=== PATIENT | male | born 1960 | race Caucasian/White ===

== ENCOUNTER 2018-01-24 22:10 | Emergency (ER) | payer MEDICAID ==
[~2018-01-24] VITALS: Ht 185.4 cm; Wt 58.4 kg
[2018-01-24] MEDS ORDERED: clonazePAM 0.5mg tablet PO SCH (23:15)
[2018-01-24 23:28] VITALS: BP 156/94
== END 2018-01-24 23:30 | disposition home or self-care (01) ==
LOC: ER 22:10
DX: F19.939 Other psychoactive substance use, unspecified with withdrawal, unspecified (principal); Z98.890 Other specified postprocedural states
CPT/HCPCS: 99283

== ENCOUNTER 2019-11-08 11:02 | Day surgery (SDC) | payer MEDICAID ==
[~2019-11-08] VITALS: Ht 180.3 cm; Wt 64.0 kg
[2019-11-08 11:19] VITALS: BP 124/52
[2019-11-08] MEDS ORDERED: normal saline 1000ml 1,000 ML IV PRN (11:55)
[2019-11-08] MEDS ORDERED: SERT25TA PO (11:56)
[2019-11-08] MEDS ORDERED: ALBU8.5H8 INH (11:56)
[2019-11-08] MEDS ORDERED: TRAZ-251 PO (11:56)
[2019-11-08] MEDS ORDERED: IBUP-1984 PO (11:56)
[2019-11-08] MEDS ORDERED: OMEP40CA13 PO (11:56)
[2019-11-08] MEDS ORDERED: DIAZ5TAB PO (11:56)
[2019-11-08] MEDS ORDERED: TIOT4MIS3 IH (11:56)
[2019-11-08] MEDS ORDERED: heparin sodium, porcine/PF 100unit/ml 5ML syringe ONE (13:27)
[2019-11-08] MEDS ORDERED: fentaNYL/PF 50MCG/1 ML 2ML syringe ONE ×2 (13:28→14:05)
[2019-11-08] MEDS ORDERED: midazolam 2 mg/2 ml injection ONE ×2 (13:28→14:05)
[2019-11-08] MEDS ORDERED: LIDOcaine 1%/PF 5ML 10 MG/ML VIAL ONE ×2 (13:28→14:08)
[2019-11-08 14:32] VITALS: BP 117/83
[2019-11-08 14:45] VITALS: BP 115/82
[2019-11-08 14:56] VITALS: BP 133/77
== END 2019-11-08 15:20 | disposition home or self-care (01) ==
LOC: SSTAY O 11:02
PROVIDERS: ATTEND Radiology Vascular & Interventional Radiology
DX: C34.11 Malignant neoplasm of upper lobe, right bronchus or lung (principal)
CPT/HCPCS: 36561; 76937; 77001; 99152; 99153; C1769; C1788; C1894; J1642; J2250; J3010

== ENCOUNTER 2021-05-07 05:39 | Inpatient (IN) | payer MEDICAID ==
[2021-04-30 17:10] LABS: BASOPHILS % (AUTO) 0.4 % (0-1); EOSINOPHILS % (AUTO) 0.5 % (0-6); LYMPHOCYTES # (AUTO) 2.2 X10'3 (1.1-4.8); LYMPHOCYTES % (AUTO) 29.8 % (21-51); MEAN CORPUSCULAR HEMOGLOBIN 30.2 PG (27.0-31.0); MEAN CORPUSCULAR HGB CONC 34.1 g/dL (33.0-36.5); MEAN CORPUSCULAR VOLUME 88.8 FL (78-98); MONOCYTES # (AUTO) 0.6 X10'3 (0-0.9); MONOCYTES % (AUTO) 8.1 % (2-12); NEUTROPHILS # (AUTO) 4.6 X10'3 (1.8-7.7); NEUTROPHILS % (AUTO) 61.2 % (42-75); PRE OP HEMATOCRIT 40.2 % (42.0-52.0); PRE OP HEMOGLOBIN 13.7 g/dL (14.0-17.9); PRE OP PLATELET COUNT 222 X10'3 (140-440); RED BLOOD COUNT 4.52 X10'6 (4.70-6.10); RED CELL DISTRIBUTION WIDTH 12.8 % (11.5-14.5)
[2021-04-30 17:15] LABS: CLARITY,URINE CLOUDY (Clear); COLOR,URINE YELLOW (Yellow); GLUCOSE, URINE NEGATIVE (Neg); KETONES,URINE NEGATIVE (Neg); LEUKOCYTE ESTERASE ,URINE LARGE (Neg); NITRITES, URINE POSITIVE (Neg); OCCULT BLOOD,URINE TRACE-INTACT (Neg); PROTEIN,URINE 30 mg/dl (Neg)
[2021-04-30 17:18] LABS: UA COLLECTION TYPE CLN CATCH MIDSTREAM
[2021-04-30 17:21] LABS: PRE OP INR 1.1 INR; PRE OP PROTIME 11.2 SECONDS (9.0-12.0)
[2021-04-30 17:22] LABS: BACTERIA,URINE 2+ /HPF (Neg); WBC CLUMPS,URINE MANY /HPF (NEGATIVE); WBC,URINE TNTC /HPF (0-4)
[2021-04-30 17:23] LABS: SQUAMOUS EPITHELIAL CELL,UR FEW /LPF (FEW)
[2021-04-30 17:35] LABS: ALBUMIN 3.9 G/DL (3.4-5.0); ALBUMIN/GLOBULIN RATIO 1.1 (1.1-1.5); ALKALINE PHOSPHATASE 95 IU/L (46-116); BLOOD UREA NITROGEN 7 MG/DL (7-18); BUN/CREATININE RATIO 10.1 (5.4-32.0); CHLORIDE 102 MMOL/L (99-107); CREATININE 0.69 MG/DL (0.60-1.10); PRE OP ALT 22 U/L (30-65); PRE OP ANION GAP 4 (8-16); PRE OP AST 16 U/L (10-37); PRE OP BILIRUB, TOTAL 0.4 MG/DL (0.0-1.0); PRE OP GLUCOSE 94 MG/DL (70-104); PRE OP POTASSIUM 4.3 MMOL/L (3.4-5.1); PRE OP SODIUM 142 MMOL/L (135-145); TOTAL CARBON DIOXIDE 35.8 MMOL/L (24-32); TOTAL PROTEIN 7.4 G/DL (6.4-8.2); eGFR > 90 ML/MIN
[~2021-05-07] VITALS: Ht 180.3 cm; Wt 53.1 kg
[2021-05-07] VITALS (24 sets, daily range): BP systolic 118–179; BP diastolic 61–95
[~2021-05-07 05:39] MED LIST: HYDR-3686 PO; MORP30TA60 PO; OLAN5TAB75 PO; OMEP40CA21 PO; OXYC30TA50 PO; SERT-434 PO; TRAZ-256 PO; ceFOXitin 2GM-NS 100mL ADDvant 100 ML IV ONE; famotidine 20mg tablet PO ONE; ringers solution, lacted 1,000 ML IV SCH
[2021-05-07] MEDS ORDERED: iohexol 300mg/ml 100ml inj. ONE (07:01)
[2021-05-07] MEDS ORDERED: diatr meglu/diatrizoate 30ml oral sol.-(3 dose) bottle ONE (07:29)
[2021-05-07] MEDS ORDERED: diazepam 5mg tablet ONE (08:19)
[2021-05-07] MEDS ORDERED: oxyCODONE/APAP 10/325mg tablet PO STA (12:49)
[2021-05-07] MEDS ORDERED: fentaNYL /PF 50mcg/ml 5ml ampule ONE (13:47)
[2021-05-07] MEDS ORDERED: sevoflurane 250ml liquid IH ONE (13:50)
[2021-05-07] MEDS ORDERED: BUPIVAcaine/PF 2.5mg/ml (0.25%) 10ml vial ONE (13:51)
[2021-05-07] MEDS ORDERED: BUPIVACAINE liposomal/PF 13.3 MG/ML vial IM ONE (13:51)
[2021-05-07] MEDS ORDERED: proCHLORperazine 10 MG/2 ml inj IV PRN (15:05)
[2021-05-07] MEDS ORDERED: ondansetron/PF 4mg/2ml inj IV PRN (15:05)
[2021-05-07] MEDS ORDERED: meperidine/PF 25mg/ml syringe IV PRN ×2 (15:05)
[2021-05-07] MEDS ORDERED: morphine 2 MG/ML inj. syringe IV PRN (15:05)
[2021-05-07] MEDS ORDERED: ringers solution, lacted 1,000 ML IV SCH (15:05)
[2021-05-07] MEDS ORDERED: LIDOcaine 2% (20mg/ml) 5ml vial ONE (16:25)
[2021-05-07] MEDS ORDERED: ondansetron/PF 4mg/2ml inj ONE (16:25)
[2021-05-07] MEDS ORDERED: ePHEDrine 50MG/ML INJ. ONE (16:25)
[2021-05-07] MEDS ORDERED: acetaminophen 1,000mg/100ml IV 100 ML IV ONE (16:25)
[2021-05-07] MEDS ORDERED: rocuronium 10mg/ml inj IV ONE (16:25)
[2021-05-07] MEDS ORDERED: dexamethasone sod phosphate 4mg/ml inj. ONE (16:25)
[2021-05-07] MEDS ORDERED: propofol inj 20 ML IV ONE (16:25)
[2021-05-07] MEDS ORDERED: sugammadex 200mg/2ml injection IV ONE (16:26)
--- NOTE | 2021-05-07 16:50 | NUR ---
Received from OR via , accompanied by Anesthesiologist DR SEBASTIAN and report given by Anesthesiolgist. PT PRESENTS WITH PIV LEFT WRIST, ABD DRESSING DRY AND INTACT, VSS. Addendum: 05/07/21 at 1707 by Ladi Bower RN, RN Amended: Links added.
[2021-05-07] MEDS: meperidine/PF 25mg/ml syringe IV PRN ×4 (17:09→17:55)
[2021-05-07] MEDS: morphine 4 MG/ML inj SYRINge IV PRN ×3 (17:36→18:26)
[2021-05-07] MEDS: HYDROmorphone/PF 0.2 MG/ML SYRINGE IV PRN ×2 (18:38→19:05)
--- NOTE | 2021-05-07 19:00 | NUR ---
PATIENT TAKEN TO ROOM WITH ALL BELONGINGS AND HOOKED UP TO MONITORS IN ROOM AND REPORT GIVEN TO TONE WAYNE RN WHO HAS TAKEN OVER PATIENT CARE. Addendum: 05/07/21 at 1915 by Ladi Bower RN, RN Amended: Links added.
--- NOTE | 2021-05-07 19:30 | NUR ---
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 BRODERICK. PLACED COMFORTABLE IN BED. VITAL SIGNS MONITORED PER POST OP PROTOCOL.
[2021-05-07] MEDS: potassium CL 20mEq in D5-1/2NS 1,000 ML IV SCH ×2 (19:40→23:31)
[2021-05-07] MEDS: GABAPENTIN 300 MG/6 ML oral SOLUTION cup PO SCH (21:00)
[2021-05-07] MEDS: ketorolac trometh. 30mg/ml inj. IV PRN (22:25)
[2021-05-07] MEDS ORDERED: gabapentin 300mg capsule PO ONE (22:35)
[2021-05-08] MEDS: HYDROmorphone inj. 0.5 MG/0.5 ML DISP.SYRIN IV PRN ×3 (02:20→13:03)
[2021-05-08] MEDS: ketorolac trometh. 30mg/ml inj. IV PRN ×3 (05:08→19:18)
--- NOTE | 2021-05-08 06:30 | NUR ---
Problems reprioritized. Patient report given, questions answered & plan of care reviewed with FAREED KHOURY.
[2021-05-08 06:42] LABS: BASOPHILS % (AUTO) 0.1 % (0-1); EOSINOPHILS % (AUTO) 0 % (0-6); HEMATOCRIT 36.5 % (42.0-52.0); HEMOGLOBIN 12.1 g/dl (14.0-17.9); LYMPHOCYTES # (AUTO) 0.9 X10'3 (1.1-4.8); LYMPHOCYTES % (AUTO) 6.4 % (21-51); MEAN CORPUSCULAR HEMOGLOBIN 29.8 PG (27.0-31.0); MEAN CORPUSCULAR HGB CONC 33.3 g/dL (33.0-36.5); MEAN CORPUSCULAR VOLUME 89.6 FL (78-98); MEAN PLATELET VOLUME 7.3 FL (7.4-10.4); MONOCYTES # (AUTO) 0.7 X10'3 (0-0.9); MONOCYTES % (AUTO) 5.2 % (2-12); NEUTROPHILS % (AUTO) 88.3 % (42-75); PLATELET COUNT 190 X10'3 (140-440); RED BLOOD COUNT 4.07 X10'6 (4.70-6.10); WHITE BLOOD COUNT 13.5 X10'3 (4.5-11.0)
[2021-05-08 06:59] LABS: ANION GAP 3 (8-16); BLOOD UREA NITROGEN 4 MG/DL (7-18); BUN/CREATININE RATIO 6.7 (5.4-32.0); CALCIUM 8.2 MG/DL (8.5-10.1); CHLORIDE 102 MMOL/L (99-107); GLUCOSE 147 MG/DL (70-104); POTASSIUM 4.5 MMOL/L (3.5-5.1); SODIUM 139 MMOL/L (135-145); TOTAL CARBON DIOXIDE 34.5 MMOL/L (24-32); eGFR > 90 ML/MIN
[2021-05-08 07:00] VITALS: BP 110/52
[2021-05-08] MEDS: GABAPENTIN 300 MG/6 ML oral SOLUTION cup PO SCH ×2 (08:00→13:00)
[2021-05-08] MEDS: potassium CL 20mEq in D5-1/2NS 1,000 ML IV SCH ×2 (09:55→17:42)
[2021-05-08] MEDS: HYDROcodone/acetaminophen 10/325mg tab PO PRN ×2 (10:03→16:34)
[2021-05-08 11:00] VITALS: BP 165/85
--- NOTE | 2021-05-08 12:18 | NUR ---
Low BMI screen: Pt BMI 16.3 using current standing scaled wt this admit. Prior wt hx 64kg standing scaled 11/08/19 admit compared w/ current 53.1kg wt however pt reports no wt loss or decreased appetite/PO intake [employer] per Nursing Malnutrition Screen this admit. Pt has normal strength, no edema, and PO hx pending s/p OR yesterday for colovesicular fistula repair w/ sigmoid resection per EMR. Will monitor for nutrition intervention needs this admit. Addendum: 05/08/21 at [address] Amended: Links added.
[2021-05-08] MEDS ORDERED: gabapentin 300mg capsule PO SCH (14:30)
[2021-05-08] MEDS ORDERED: HYDROmorphone 1 mg/ml syringe IV PRN (17:15)
[2021-05-08 18:00] VITALS: BP 151/81
--- NOTE | 2021-05-08 19:04 | NUR ---
Patient in room [facility] 344. I have received report from IRAIDA Lake and had the opportunity to ask questions and assume patient care.
--- NOTE | 2021-05-08 19:35 | NUR ---
Report given to Anderson RN, all questions answered. Pt awake in bed, wanting torodol. Anderson aware.
[2021-05-08] MEDS: oxyCODONE IR 5mg (immed. release) tablet PO PRN (21:25)
[2021-05-08] MEDS ORDERED: morphine ER 30mg tablet PO ONE (23:45)
[2021-05-09] VITALS: BP 125/84
[2021-05-09] MEDS: ondansetron/PF 4mg/2ml inj IV PRN (00:01)
[2021-05-09] MEDS: oxyCODONE IR 5mg (immed. release) tablet PO PRN ×4 (02:25→22:23)
[2021-05-09] MEDS: ketorolac trometh. 30mg/ml inj. IV PRN ×3 (02:28→18:23)
[2021-05-09] MEDS: potassium CL 20mEq in D5-1/2NS 1,000 ML IV SCH ×3 (02:31→18:20)
[2021-05-09 06:09] LABS: ALBUMIN 2.8 G/DL (3.4-5.0); ANION GAP 3 (8-16); BLOOD UREA NITROGEN 4 MG/DL (7-18); BUN/CREATININE RATIO 7.7 (5.4-32.0); CALCIUM 8.1 MG/DL (8.5-10.1); CHLORIDE 102 MMOL/L (99-107); CREATININE 0.52 MG/DL (0.60-1.10); GLUCOSE 109 MG/DL (70-104); POTASSIUM 4.1 MMOL/L (3.5-5.1); SODIUM 137 MMOL/L (135-145); TOTAL CARBON DIOXIDE 32.2 MMOL/L (24-32); eGFR > 90 ML/MIN
--- NOTE | 2021-05-09 06:17 | NUR ---
Patient in room [facility] 344. I have received report from Anderson KHOURY and had the opportunity to ask questions and assume patient care.
--- NOTE | 2021-05-09 06:55 | NUR ---
Problems reprioritized. Patient report given, questions answered & plan of care reviewed with IRAIDA Alexandre.
[2021-05-09 07:00] VITALS: BP 114/57
[2021-05-09 07:06] LABS: BASOPHILS % (AUTO) 0.1 % (0-1); EOSINOPHILS # (AUTO) 0.1 X10'3 (0-0.9); EOSINOPHILS % (AUTO) 0.6 % (0-6); HEMATOCRIT 30.9 % (42.0-52.0); HEMOGLOBIN 10.4 g/dl (14.0-17.9); LYMPHOCYTES # (AUTO) 1.6 X10'3 (1.1-4.8); LYMPHOCYTES % (AUTO) 17.5 % (21-51); MEAN CORPUSCULAR HEMOGLOBIN 29.9 PG (27.0-31.0); MEAN CORPUSCULAR HGB CONC 33.7 g/dL (33.0-36.5); MEAN CORPUSCULAR VOLUME 88.6 FL (78-98); MONOCYTES # (AUTO) 0.5 X10'3 (0-0.9); NEUTROPHILS # (AUTO) 6.7 X10'3 (1.8-7.7); NEUTROPHILS % (AUTO) 75.8 % (42-75); PLATELET COUNT 159 X10'3 (140-440); RED BLOOD COUNT 3.49 X10'6 (4.70-6.10); RED CELL DISTRIBUTION WIDTH 12.7 % (11.5-14.5); WHITE BLOOD COUNT 8.9 X10'3 (4.5-11.0)
[2021-05-09] MEDS: sertraline 50mg tablet PO SCH (08:07)
[2021-05-09] MEDS: pantoprazole 40mg Tablet.DR PO SCH (08:07)
[2021-05-09] MEDS: morphine ER 30mg tablet PO SCH ×2 (08:07→20:19)
[2021-05-09 11:00] VITALS: BP 135/76
--- NOTE | 2021-05-09 17:34 | NUR ---
patient up ambulated x1 seen by DR Martínez diet advanced ambulated x1. medicated as per EMAR with effect. dressing to midline changed minimal drainage. JELENA 10mls serosang will continue to monitor
[2021-05-09 18:00] VITALS: BP 163/90
[2021-05-09] MEDS: hydrOXYzine 25 MG tablet PO PRN (18:22)
--- NOTE | 2021-05-09 18:45 | NUR ---
Patient in room [facility] 344. I have received report from IRAIDA Tamayo and had the opportunity to ask questions and assume patient care.
--- NOTE | 2021-05-09 18:53 | NUR ---
Problems reprioritized. Patient report given, questions answered & plan of care reviewed with Anderson KHOURY.
[2021-05-09] MEDS: albuterol 2.5 MG/3 ML nebule NEB PRN (18:58)
[2021-05-09] MEDS: OLANZAPINE 5 MG TABLET PO SCH (20:19)
[2021-05-09] MEDS: traZODone 50mg tablet PO SCH ×2 (22:23)
[2021-05-10] VITALS: BP 144/80
[2021-05-10] MEDS: potassium CL 20mEq in D5-1/2NS 1,000 ML IV SCH ×3 (01:05→12:26)
[2021-05-10] MEDS: ketorolac trometh. 30mg/ml inj. IV PRN ×4 (02:15→21:41)
[2021-05-10] MEDS: oxyCODONE IR 5mg (immed. release) tablet PO PRN ×4 (02:22→18:50)
--- NOTE | 2021-05-10 06:41 | NUR ---
Patient in room [facility] 344. I have received report from Anderson KHOURY and had the opportunity to ask questions and assume patient care.
[2021-05-10 07:00] VITALS: BP 119/62
[2021-05-10 07:22] LABS: BASOPHILS % (AUTO) 0.2 % (0-1); EOSINOPHILS # (AUTO) 0.1 X10'3 (0-0.9); EOSINOPHILS % (AUTO) 1.6 % (0-6); HEMATOCRIT 30.4 % (42.0-52.0); HEMOGLOBIN 10.2 g/dl (14.0-17.9); LYMPHOCYTES # (AUTO) 1.6 X10'3 (1.1-4.8); LYMPHOCYTES % (AUTO) 19.6 % (21-51); MEAN CORPUSCULAR HEMOGLOBIN 30.1 PG (27.0-31.0); MEAN CORPUSCULAR HGB CONC 33.7 g/dL (33.0-36.5); MEAN CORPUSCULAR VOLUME 89.4 FL (78-98); MEAN PLATELET VOLUME 6.9 FL (7.4-10.4); MONOCYTES # (AUTO) 0.6 X10'3 (0-0.9); MONOCYTES % (AUTO) 7.1 % (2-12); NEUTROPHILS % (AUTO) 71.5 % (42-75); PLATELET COUNT 149 X10'3 (140-440); RED CELL DISTRIBUTION WIDTH 13.2 % (11.5-14.5); WHITE BLOOD COUNT 8.4 X10'3 (4.5-11.0)
[2021-05-10] MEDS: morphine ER 30mg tablet PO SCH ×2 (07:31→21:05)
[2021-05-10] MEDS: sertraline 50mg tablet PO SCH (07:31)
[2021-05-10] MEDS: pantoprazole 40mg Tablet.DR PO SCH (07:32)
[2021-05-10 07:50] LABS: ALBUMIN 2.4 G/DL (3.4-5.0); ANION GAP 5 (8-16); BLOOD UREA NITROGEN 5 MG/DL (7-18); BUN/CREATININE RATIO 9.6 (5.4-32.0); CALCIUM 8.1 MG/DL (8.5-10.1); CHLORIDE 103 MMOL/L (99-107); CREATININE 0.52 MG/DL (0.60-1.10); GLUCOSE 105 MG/DL (70-104); POTASSIUM 4.2 MMOL/L (3.5-5.1); SODIUM 137 MMOL/L (135-145); TOTAL CARBON DIOXIDE 28.9 MMOL/L (24-32); eGFR > 90 ML/MIN
[2021-05-10] MEDS: ondansetron/PF 4mg/2ml inj IV PRN ×2 (08:26→21:08)
--- NOTE | 2021-05-10 11:59 | NUR ---
Initial: Pt admit for colovesical fistula, s/p sigmoid colon resection with fistula takedown with ureteral stents 05/07. Pt initially on a clear liquid diet post-op documented with 25-50% PO intake however was just advanced to regular diet with first meal to be breakfast this morning, pending documentation of PO intake. LB 05/08. Will continue to follow closely and make recommendations as appropriate pending trends in PO intake. Recommendations: 1) Diet change to low residue/low fiber in view of recent GI surgery 2) Monitor need for additional protein/ONS 3) Bowel care per rx 4) Weekly scaled weights Addendum: 05/10/21 at [address] Amended: Links added.
[2021-05-10 18:00] VITALS: BP 150/81
[2021-05-10] MEDS: albuterol 2.5 MG/3 ML nebule NEB PRN (18:37)
[2021-05-10] MEDS: amox tr/potassium clavulanate 875/125mg TAB PO SCH (18:48)
--- NOTE | 2021-05-10 18:57 | NUR ---
patient unwilling to walk many excuses given.much education given on need to ambulate and cougha nd deep breathe. Wheezes heard on upper left lungs. RT TMT ordered and patient consented to ambulate x1 200ft. JELENA removed to RLQuad. report given to Prudence RN
--- NOTE | 2021-05-10 19:02 | NUR ---
Patient in room [facility] 344. I have received report from CHICHI KHOURY and had the opportunity to ask questions and assume patient care.
[2021-05-10] MEDS: OLANZAPINE 5 MG TABLET PO SCH (21:05)
[2021-05-10] MEDS: traZODone 50mg tablet PO SCH (21:05)
[2021-05-10] MEDS: hydrOXYzine 25 MG tablet PO PRN (21:05)
[2021-05-11] VITALS: BP 103/50
[2021-05-11] MEDS: oxyCODONE IR 5mg (immed. release) tablet PO PRN ×2 (03:33→11:33)
[2021-05-11] MEDS: ketorolac trometh. 30mg/ml inj. IV PRN ×4 (04:48→23:31)
--- NOTE | 2021-05-11 06:29 | NUR ---
Problems reprioritized. Patient report given, questions answered & plan of care reviewed with MARISOL KHOURY.
[2021-05-11 06:34] LABS: BASOPHILS % (AUTO) 0.2 % (0-1); EOSINOPHILS # (AUTO) 0.2 X10'3 (0-0.9); EOSINOPHILS % (AUTO) 2.4 % (0-6); HEMATOCRIT 29.7 % (42.0-52.0); HEMOGLOBIN 9.9 g/dl (14.0-17.9); LYMPHOCYTES # (AUTO) 1.8 X10'3 (1.1-4.8); MEAN CORPUSCULAR HGB CONC 33.3 g/dL (33.0-36.5); MEAN CORPUSCULAR VOLUME 90.2 FL (78-98); MEAN PLATELET VOLUME 7.3 FL (7.4-10.4); MONOCYTES # (AUTO) 0.7 X10'3 (0-0.9); MONOCYTES % (AUTO) 8.5 % (2-12); NEUTROPHILS % (AUTO) 65.9 % (42-75); PLATELET COUNT 166 X10'3 (140-440); RED CELL DISTRIBUTION WIDTH 12.7 % (11.5-14.5); WHITE BLOOD COUNT 7.6 X10'3 (4.5-11.0)
--- NOTE | 2021-05-11 06:40 | NUR ---
Patient in room [facility] 344. I have received report from IRAIDA Morrow and had the opportunity to ask questions and assume patient care.
[2021-05-11 07:00] VITALS: BP 106/59
[2021-05-11 07:06] LABS: ALBUMIN 2.3 G/DL (3.4-5.0); ANION GAP 4 (8-16); BLOOD UREA NITROGEN 5 MG/DL (7-18); BUN/CREATININE RATIO 7.9 (5.4-32.0); CALCIUM 8.2 MG/DL (8.5-10.1); CHLORIDE 102 MMOL/L (99-107); CREATININE 0.63 MG/DL (0.60-1.10); GLUCOSE 84 MG/DL (70-104); POTASSIUM 4.3 MMOL/L (3.5-5.1); SODIUM 138 MMOL/L (135-145); TOTAL CARBON DIOXIDE 31.8 MMOL/L (24-32); eGFR > 90 ML/MIN
[2021-05-11] MEDS: amox tr/potassium clavulanate 875/125mg TAB PO SCH ×2 (08:55→17:59)
[2021-05-11] MEDS: sertraline 50mg tablet PO SCH (08:55)
[2021-05-11] MEDS: morphine ER 30mg tablet PO SCH ×2 (08:55→19:48)
[2021-05-11] MEDS: pantoprazole 40mg Tablet.DR PO SCH (08:55)
[2021-05-11 11:00] VITALS: BP 146/80
[2021-05-11] MEDS ORDERED: magnesium hydroxide 30ml (MOM) UD suspension PO ONE (11:25)
[2021-05-11] MEDS: ondansetron/PF 4mg/2ml inj IV PRN (17:59)
[2021-05-11] MEDS: oxyCODONE/APAP 10/325mg tablet PO PRN ×2 (17:59→23:29)
--- NOTE | 2021-05-11 18:05 | NUR ---
Patient in room [facility] 344. I have received report from MARISOL KHOURY and had the opportunity to ask questions and assume patient care. Addendum: 05/11/21 at 1923 by Rebecca Chi RN Amended: Links added.
--- NOTE | 2021-05-11 18:41 | NUR ---
Problems reprioritized. Patient report given, questions answered & plan of care reviewed with IRAIDA Cantu.
[2021-05-11 19:34] VITALS: BP 112/60
[2021-05-11] MEDS: hydrOXYzine 25 MG tablet PO PRN (19:48)
[2021-05-11] MEDS: traZODone 50mg tablet PO SCH (19:49)
[2021-05-11] MEDS: OLANZAPINE 5 MG TABLET PO SCH (19:56)
[2021-05-11] MEDS: albuterol 2.5 MG/3 ML nebule NEB PRN (20:34)
--- NOTE | 2021-05-11 21:50 | NUR ---
pt ASSISTED UP TO BRP FOR SMALL bM.
--- NOTE | 2021-05-11 22:10 | NUR ---
PT UP AMBULATING IN THE JACOB WITH SHIRT SORTER. TOLERATED FAIR.
--- NOTE | 2021-05-11 22:30 | NUR ---
AMBULATED WITH CROSSING TENDER 300 FT. TOLERATED WELL.
--- NOTE | 2021-05-11 23:35 | NUR ---
PT MEDICATED FOR PAIN WITH PERCOCET AND TORADOL PER REQUEST. PT HAD TAKEN OTHER HS MEDS EARLIER.
[2021-05-12] VITALS: BP 105/62
--- NOTE | 2021-05-12 03:00 | NUR ---
pt mcnulty leaked pt had it kinked. skin care done and pad changed and 1cc added to the balloon. repositioned tubing on leg to insure mcnulty did not leak.
[2021-05-12 06:22] LABS: ALBUMIN 2.4 G/DL (3.4-5.0); ANION GAP 1 (8-16); BLOOD UREA NITROGEN 10 MG/DL (7-18); BUN/CREATININE RATIO 15.6 (5.4-32.0); CALCIUM 8.3 MG/DL (8.5-10.1); CHLORIDE 102 MMOL/L (99-107); CREATININE 0.64 MG/DL (0.60-1.10); GLUCOSE 95 MG/DL (70-104); POTASSIUM 4.4 MMOL/L (3.5-5.1); SODIUM 139 MMOL/L (135-145); TOTAL CARBON DIOXIDE 36.1 MMOL/L (24-32); eGFR > 90 ML/MIN
--- NOTE | 2021-05-12 06:23 | NUR ---
Problems reprioritized. Patient report given, questions answered & plan of care reviewed with rené patino. Addendum: 05/12/21 at 0623 by Rebecca Chi RN Amended: Links added.
[2021-05-12 06:47] LABS: BASOPHILS % (AUTO) 0.2 % (0-1); EOSINOPHILS # (AUTO) 0.2 X10'3 (0-0.9); EOSINOPHILS % (AUTO) 2.7 % (0-6); HEMATOCRIT 29.7 % (42.0-52.0); HEMOGLOBIN 10.1 g/dl (14.0-17.9); LYMPHOCYTES # (AUTO) 1.5 X10'3 (1.1-4.8); MEAN CORPUSCULAR HGB CONC 33.8 g/dL (33.0-36.5); MEAN CORPUSCULAR VOLUME 88.6 FL (78-98); MEAN PLATELET VOLUME 6.8 FL (7.4-10.4); MONOCYTES # (AUTO) 0.8 X10'3 (0-0.9); MONOCYTES % (AUTO) 11.2 % (2-12); NEUTROPHILS # (AUTO) 4.7 X10'3 (1.8-7.7); NEUTROPHILS % (AUTO) 64.9 % (42-75); PLATELET COUNT 180 X10'3 (140-440); RED BLOOD COUNT 3.36 X10'6 (4.70-6.10); RED CELL DISTRIBUTION WIDTH 12.8 % (11.5-14.5); WHITE BLOOD COUNT 7.2 X10'3 (4.5-11.0)
--- NOTE | 2021-05-12 06:50 | NUR ---
Patient in room [facility] 344B. I have received report from IRAIDA GRAMAJO and had the opportunity to ask questions and assume patient care.
[2021-05-12] MEDS: amox tr/potassium clavulanate 875/125mg TAB PO SCH (07:59)
[2021-05-12] MEDS: morphine ER 30mg tablet PO SCH (07:59)
[2021-05-12 08:00] VITALS: BP 104/47
[2021-05-12] MEDS: sertraline 50mg tablet PO SCH (08:00)
[2021-05-12] MEDS: pantoprazole 40mg Tablet.DR PO SCH (08:00)
[2021-05-12] MEDS: ketorolac trometh. 30mg/ml inj. IV PRN (08:09)
[2021-05-12] MEDS ORDERED: OXYC1TAB17 PO (10:53)
[2021-05-12] MEDS ORDERED: AMOX-580 PO (10:53)
[2021-05-12 11:00] VITALS: BP 106/64
[2021-05-12] MEDS: oxyCODONE/APAP 10/325mg tablet PO PRN (11:50)
--- NOTE | 2021-05-12 16:05 | NUR ---
DC INSTRUCTIONS GIVEN TO PT, QUESTIONS ANSWERED. IV REMOVED, NO COMPLICATIONS, BANDAGE APPLIED. PT BELONGINGS GATHERED AND PT WAS ASSISTED WITH DRESSING. PT WHEELED DOWN TO PRIVATE VEHICLE IN STABLE CONDITION. [facility]
== END 2021-05-12 16:04 | disposition home or self-care (01) | DRG 950 ==
LOC: UNDOADMIN 05:39 → PAS IN 05:39 → SUR 3N 19:25 → PAS IN 19:25 → SUR 3N 05-08 02:00
PROVIDERS: ADMIT Surgery; ATTEND Surgery
PROC: 3E0T3BZ Introduction of Anesthetic Agent into Peripheral Nerves and Plexi, Percutaneous Approach (ICD-10-PCS; 2021-05-07)
PROC: 3E0T33Z Introduction of Anti-inflammatory into Peripheral Nerves and Plexi, Percutaneous Approach (ICD-10-PCS; 2021-05-07)
PROC: BW211ZZ Computerized Tomography (CT Scan) of Abdomen and Pelvis using Low Osmolar Contrast (ICD-10-PCS; 2021-05-07)
PROC: 0DBN0ZZ Excision of Sigmoid Colon, Open Approach (ICD-10-PCS; principal; 2021-05-07 13:50)
PROC: 0T788DZ Dilation of Bilateral Ureters with Intraluminal Device, Via Natural or Artificial Opening Endoscopic (ICD-10-PCS; 2021-05-07 13:50)
DX: N32.1 Vesicointestinal fistula (principal); K56.7 Ileus, unspecified; F17.200 Nicotine dependence, unspecified, uncomplicated; R39.89 Other symptoms and signs involving the genitourinary system; J43.9 Emphysema, unspecified; Z85.118 Personal history of other malignant neoplasm of bronchus and lung; Z90.2 Acquired absence of lung [part of]; Z92.21 Personal history of antineoplastic chemotherapy; Z79.899 Other long term (current) drug therapy
CPT/HCPCS: 36415; 74177; 76000; 80048; 80053; 81001; 82948; 85025; 85610; 85730; 86885; 86900; 86901; 87077; 87081; 87088; 87186; 93005; 94640; 94668; 94760; A4357; A4618; A6407; A6449; A7000; C1758; C1769; C9290; C9399; G0378; J0131; J0694; J1100; J1170; J1885; J2001; J2175; J2270; J2405; J2704; J3010; J3480; J3490; J7120; Q0177; Q9963; Q9967; U0003; U0005

== ENCOUNTER 2021-05-13 17:37 | Emergency (ER) | payer MEDICAID ==
[~2021-05-13] VITALS: Ht 210.8 cm; Wt 54.5 kg
[~2021-05-13 17:37] MED LIST changes: +AMOX-580 PO; +OXYC1TAB17 PO; -ceFOXitin 2GM-NS 100mL ADDvant 100 ML IV ONE; -famotidine 20mg tablet PO ONE; -ringers solution, lacted 1,000 ML IV SCH
[2021-05-13 19:21] LABS: BASOPHILS % (AUTO) 0.3 % (0-1); EOSINOPHILS # (AUTO) 0.1 X10'3 (0-0.9); HEMATOCRIT 34.8 % (42.0-52.0); HEMOGLOBIN 11.9 g/dl (14.0-17.9); LYMPHOCYTES # (AUTO) 1.3 X10'3 (1.1-4.8); LYMPHOCYTES % (AUTO) 15.1 % (21-51); MEAN CORPUSCULAR HEMOGLOBIN 30.1 PG (27.0-31.0); MEAN CORPUSCULAR HGB CONC 34.2 g/dL (33.0-36.5); MEAN PLATELET VOLUME 6.9 FL (7.4-10.4); MONOCYTES # (AUTO) 0.7 X10'3 (0-0.9); NEUTROPHILS # (AUTO) 6.2 X10'3 (1.8-7.7); NEUTROPHILS % (AUTO) 74.6 % (42-75); PLATELET COUNT 252 X10'3 (140-440); RED BLOOD COUNT 3.95 X10'6 (4.70-6.10); RED CELL DISTRIBUTION WIDTH 12.8 % (11.5-14.5); WHITE BLOOD COUNT 8.3 X10'3 (4.5-11.0)
[2021-05-13 19:30] LABS: ALANINE AMINOTRANSFERASE 12 U/L (12-78); ALBUMIN/GLOBULIN RATIO 0.8 (1.1-1.5); ALKALINE PHOSPHATASE 79 IU/L (46-116); ANION GAP 6 (8-16); ASPARTATE AMINO TRANSFERASE 11 U/L (10-37); BILIRUBIN,TOTAL 0.4 MG/DL (0.1-1.0); BLOOD UREA NITROGEN 10 MG/DL (7-18); BUN/CREATININE RATIO 17.9 (5.4-32.0); CALCIUM 8.7 MG/DL (8.5-10.1); CHLORIDE 96 MMOL/L (99-107); CREATININE 0.56 MG/DL (0.60-1.10); GLUCOSE 89 MG/DL (70-104); POTASSIUM 4.4 MMOL/L (3.5-5.1); SODIUM 135 MMOL/L (135-145); TOTAL CARBON DIOXIDE 33.4 MMOL/L (24-32); TOTAL PROTEIN 6.7 G/DL (6.4-8.2); eGFR > 90 ML/MIN
--- NOTE | 2021-05-13 21:46 | NUR ---
Patient states usually wears 2-2.5L oxygen at home. Oxygen saturation on room air 88-90%, so patient provided with 2L oxygen via nasal cannula.
[2021-05-14 00:06] VITALS: BP 148/72
== END 2021-05-14 00:08 | disposition home or self-care (01) ==
LOC: ER 17:38
DX: K91.840 Postprocedural hemorrhage of a digestive system organ or structure following a digestive system procedure (principal); Z72.89 Other problems related to lifestyle; Z90.2 Acquired absence of lung [part of]; Z98.890 Other specified postprocedural states; Z79.899 Other long term (current) drug therapy; Z88.8 Allergy status to other drugs, medicaments and biological substances; Y83.4 Other reconstructive surgery as the cause of abnormal reaction of the patient, or of later complication, without mention of misadventure at the time of the procedure; Y73.3 Surgical instruments, materials and gastroenterology and urology devices (including sutures) associated with adverse incidents
CPT/HCPCS: 36415; 74176; 80053; 85025; 99284

== ENCOUNTER 2021-05-16 17:55 | Inpatient (IN) | payer MEDICAID ==
[~2021-05-16] VITALS: Ht 180.3 cm; Wt 54.5 kg
[2021-05-16 19:12] LABS: BASOPHILS % (AUTO) 0.6 % (0-1); EOSINOPHILS # (AUTO) 0.1 X10'3 (0-0.9); EOSINOPHILS % (AUTO) 1.4 % (0-6); HEMATOCRIT 34.9 % (42.0-52.0); HEMOGLOBIN 11.7 g/dl (14.0-17.9); LYMPHOCYTES # (AUTO) 1.6 X10'3 (1.1-4.8); LYMPHOCYTES % (AUTO) 24.6 % (21-51); MEAN CORPUSCULAR HEMOGLOBIN 29.4 PG (27.0-31.0); MEAN CORPUSCULAR HGB CONC 33.6 g/dL (33.0-36.5); MEAN CORPUSCULAR VOLUME 87.6 FL (78-98); MEAN PLATELET VOLUME 6.4 FL (7.4-10.4); MONOCYTES # (AUTO) 0.5 X10'3 (0-0.9); NEUTROPHILS # (AUTO) 4.4 X10'3 (1.8-7.7); NEUTROPHILS % (AUTO) 65.4 % (42-75); PLATELET COUNT 363 X10'3 (140-440); RED BLOOD COUNT 3.98 X10'6 (4.70-6.10); RED CELL DISTRIBUTION WIDTH 12.8 % (11.5-14.5); WHITE BLOOD COUNT 6.7 X10'3 (4.5-11.0)
[2021-05-16 19:20] LABS: ALANINE AMINOTRANSFERASE 13 U/L (12-78); ALBUMIN 3.3 G/DL (3.4-5.0); ALBUMIN/GLOBULIN RATIO 0.9 (1.1-1.5); ALKALINE PHOSPHATASE 82 IU/L (46-116); ANION GAP 2 (8-16); ASPARTATE AMINO TRANSFERASE 11 U/L (10-37); BILIRUBIN,TOTAL 0.3 MG/DL (0.1-1.0); BLOOD UREA NITROGEN 8 MG/DL (7-18); BUN/CREATININE RATIO 13.3 (5.4-32.0); CALCIUM 8.6 MG/DL (8.5-10.1); CHLORIDE 98 MMOL/L (99-107); GLUCOSE 112 MG/DL (70-104); LIPASE < 50 U/L (73-393); POTASSIUM 3.9 MMOL/L (3.5-5.1); SODIUM 137 MMOL/L (135-145); TOTAL CARBON DIOXIDE 37.3 MMOL/L (24-32); TOTAL PROTEIN 6.9 G/DL (6.4-8.2); eGFR > 90 ML/MIN
[2021-05-16] MEDS ORDERED: diatr meglu/diatrizoate 30ml oral sol.-(3 dose) bottle PO SCH (20:15)
--- NOTE | 2021-05-16 21:01 | NUR ---
output: 300 ml khan urine from mcnulty catheter
--- NOTE | 2021-05-16 21:01 | NUR ---
Vini alston in [facility] - 05/16/21 at 2101 by MARTHA 300ml of khan urine
[2021-05-16 21:27] LABS: COLOR,URINE YELLOW (Yellow); GLUCOSE, URINE NEGATIVE (Neg); KETONES,URINE 15 mg/dl (Neg); LEUKOCYTE ESTERASE ,URINE TRACE (Neg); NITRITES, URINE POSITIVE (Neg); OCCULT BLOOD,URINE SMALL (Neg); PH,URINE 7.5 (4.8-8.0); PROTEIN,URINE 30 mg/dl (Neg); UROBILINOGEN,URINE 0.2 E.U/dL (0.2-1.0)
[2021-05-16 21:44] LABS: CLARITY,URINE SLIGHTLY CLOUDY (Clear); UA COLLECTION TYPE FOLEY CATH
[2021-05-16 21:45] LABS: BACTERIA,URINE 1+ /HPF (Neg); SQUAMOUS EPITHELIAL CELL,UR FEW /LPF (FEW)
[2021-05-16] MEDS ORDERED: HYDROmorphone inj. 0.5 MG/0.5 ML DISP.SYRIN IV PRN (23:10)
[2021-05-16] MEDS ORDERED: sertraline 50mg tablet PO SCH (23:10)
[2021-05-16] MEDS ORDERED: amox tr/potassium clavulanate 875/125mg TAB PO ONE (23:10)
[2021-05-16] MEDS ORDERED: morphine 4 MG/ML inj SYRINge IV PRN (23:10)
[2021-05-16] MEDS ORDERED: amox tr/potassium clavulanate 875/125mg TAB PO SCH (23:10)
[2021-05-16] MEDS ORDERED: ondansetron/PF 4mg/2ml inj IV PRN (23:15)
[2021-05-16] MEDS: hydrOXYzine 25 MG tablet PO PRN (23:29)
[2021-05-16] MEDS: OLANZAPINE 5 MG TABLET PO SCH (23:29)
[2021-05-16] MEDS: traZODone 50mg tablet PO SCH (23:32)
[2021-05-17] MEDS ORDERED: ipratropium/albuterol 3ml nebule NEB PRN (00:05)
[2021-05-17] MEDS ORDERED: acetaminophen 325mg tablet PO PRN ×2 (00:05)
[2021-05-17] MEDS ORDERED: HYDROmorphone inj. 0.5 MG/0.5 ML DISP.SYRIN IV PRN (00:05)
[2021-05-17] MEDS ORDERED: magnesium hydroxide 30ml (MOM) UD suspension PO PRN (00:05)
[2021-05-17] MEDS ORDERED: ondansetron 4mg rapidly disintigrating tab PO PRN (00:05)
[2021-05-17] MEDS ORDERED: diphenhydrAMINE 50 mg/ml inj IV PRN (00:05)
[2021-05-17] MEDS ORDERED: ondansetron/PF 4mg/2ml inj IV PRN (00:05)
[2021-05-17] MEDS ORDERED: diphenhydrAMINE 25mg capsule PO PRN (00:05)
[2021-05-17] MEDS ORDERED: HYDROcodone/acetaminophen 5mg/325mg tablet PO PRN (00:05)
[2021-05-17] MEDS ORDERED: acetaminophen 650mg rectal suppository RC PRN (00:05)
[2021-05-17] MEDS ORDERED: bisacodyl 10mg suppository rectal RC PRN (00:05)
[2021-05-17] MEDS ORDERED: mag hydrox/Alum hydrox/simeth 30ml oral suspension PO PRN (00:05)
[2021-05-17] MEDS ORDERED: morphine 2 MG/ML inj. syringe IV PRN (00:05)
[2021-05-17] MEDS ORDERED: normal saline 1000ml 1,000 ML IV SCH (00:05)
[2021-05-17 01:29] LABS: MAGNESIUM 1.7 MG/DL (1.5-2.4); PHOSPHORUS 3.3 MG/DL (2.3-4.5)
[2021-05-17] MEDS: HYDROcodone/acetaminophen 10/325mg tab PO PRN ×3 (02:43→20:56)
[2021-05-17 04:31] LABS: PARTIAL THROMBOPLASTIN TIME 30 SECONDS (22-32)
[2021-05-17] MEDS: morphine 2 MG/ML inj. syringe IV PRN ×4 (04:42→21:31)
[2021-05-17] MEDS: normal saline 1000ml 1,000 ML IV SCH ×2 (04:42→11:12)
[2021-05-17] MEDS ORDERED: diatr meglu/diatrizoate 30ml oral sol.-(3 dose) bottle PO PRN (04:55)
[2021-05-17] MEDS ORDERED: diatr meglu/diatrizoate 30ml oral sol.-(3 dose) bottle PO ONE (07:00)
[2021-05-17] MEDS: docusate sod 100mg capsule PO SCH ×2 (08:00→20:56)
[2021-05-17] MEDS ORDERED: sertraline 50mg tablet PO SCH ×3 (08:00→21:22)
[2021-05-17] MEDS: CefTRIAXone/D5W-Rocephin 1gm 50 ML IV SCH (08:28)
[2021-05-17] MEDS: pantoprazole 40mg Tablet.DR PO SCH (08:28)
[2021-05-17] MEDS: heparin, porcine 5000 units/ml vial SQ SCH ×2 (08:29→20:57)
[2021-05-17] MEDS ORDERED: amox tr/potassium clavulanate 875/125mg TAB PO SCH (08:30)
[2021-05-17] MEDS ORDERED: diatr meglu/diatrizoate 30ml oral sol.-(3 dose) bottle ONE (09:25)
--- NOTE | 2021-05-17 10:20 | NUR ---
Patient in room ED 2. I have received report from Parvin KHOURY and had the opportunity to ask questions will assume patient care when patient comes to the floor. . Addendum: 05/17/21 at 1217 by Alyssa Koch RN PAGER ID: [phone] MESSAGE: Estela [phone] Re: Thanh [id number] Patients CT results are back can patient eat?
[2021-05-17 11:00] VITALS: BP 125/67
[2021-05-17] MEDS: nicotine 21mg patch - 24 hr TD SCH (11:11)
--- NOTE | 2021-05-17 12:19 | NUR ---
PAGER ID: [phone] MESSAGE: AlyssaFoundations in LearningAinsley [phone] Re: Thanh [id number] Patients CT results are back can patient eat?
--- NOTE | 2021-05-17 14:33 | NUR ---
Noted pt with a low BMI of 16.8 however current documented wt isn't scaled. Pt with scaled wt hx of 53.1 taken 05/07 and appears to be chronically underweight per documented wt hx in EMR. Pt denied wt loss or decreased appetite per malnutrition risk screen this admit as well as previous admit 05/07. Pt just admitted, pending first meal on regular diet as well as physical assessment. Pt appears well developed, well nourished per ED report and H&P. Will continue to follow and make recommendations as appropriate. Addendum: 05/17/21 at [address] Amended: Links added.
[2021-05-17 15:00] VITALS: BP 127/75
--- NOTE | 2021-05-17 17:57 | NUR ---
PAGER ID: [phone] MESSAGE: AlyssaAinsley [phone] Re: Thanh [id number] please call re: medications abx and pain meds changes
[2021-05-17 18:00] VITALS: BP 143/84
--- NOTE | 2021-05-17 18:33 | NUR ---
PAGER ID: [phone] MESSAGE: Alyssa Tele [phone] Re: Thanh [id number] please call re: medications Wound like to get patient back on home medications due to patient possibly being discharged tomorrow : Oxycodone 30mg PO Q4H , MS Contin 30mg Q12H , Also wanted an order for patients mcnulty that he came in with and per patient will go home with mcnulty for 2-3 more weeks. Patient was takeing Augmentin 875/125 BID for 14 days would like to continue until complete Patient started on discharge on 05/12 Denisha primary NOC RN aware of questions and will follow through when Dr Chery calls back
--- NOTE | 2021-05-17 18:37 | NUR ---
Problems reprioritized. Patient report given, questions answered & plan of care reviewed with Denisha RN.
[2021-05-17] MEDS: lactobacillus rhamnosus 10,000 MMU CELLS/CAPSULE PO SCH (20:56)
[2021-05-17] MEDS: traZODone 50mg tablet PO SCH (20:56)
[2021-05-17] MEDS: OLANZAPINE 5 MG TABLET PO SCH (20:57)
[2021-05-17] MEDS ORDERED: OLANZAPINE 5 MG TABLET PO SCH (21:00)
[2021-05-17] MEDS ORDERED: traZODone 50mg tablet PO SCH (21:00)
[2021-05-17] MEDS ORDERED: temazepam 15mg capsule PO PRN (21:00)
[2021-05-17] MEDS: hydrOXYzine 25 MG tablet PO PRN (21:02)
[2021-05-17] MEDS ORDERED: sertraline 50mg tablet PO ONE (21:25)
[2021-05-17 22:00] VITALS: BP 88/65
[2021-05-18] MEDS: HYDROcodone/acetaminophen 10/325mg tab PO PRN ×4 (00:59→12:58)
[2021-05-18] MEDS: morphine 2 MG/ML inj. syringe IV PRN ×4 (01:30→13:03)
[2021-05-18 02:00] VITALS: BP 137/59
[2021-05-18 06:00] VITALS: BP 106/62
--- NOTE | 2021-05-18 06:25 | NUR ---
Problems reprioritized. Patient report given, questions answered & plan of care reviewed with Karen KHOURY.
--- NOTE | 2021-05-18 06:33 | NUR ---
Patient in room PCU 3026. I have received report from Vijaya KHOURY and had the opportunity to ask questions and assume patient care.
[2021-05-18 07:08] LABS: BASOPHILS % (AUTO) 0.7 % (0-1); EOSINOPHILS # (AUTO) 0.2 X10'3 (0-0.9); EOSINOPHILS % (AUTO) 3.2 % (0-6); HEMATOCRIT 31.2 % (42.0-52.0); HEMOGLOBIN 10.5 g/dl (14.0-17.9); LYMPHOCYTES # (AUTO) 2.2 X10'3 (1.1-4.8); LYMPHOCYTES % (AUTO) 36.8 % (21-51); MEAN CORPUSCULAR HEMOGLOBIN 29.6 PG (27.0-31.0); MEAN CORPUSCULAR HGB CONC 33.5 g/dL (33.0-36.5); MEAN CORPUSCULAR VOLUME 88.1 FL (78-98); MEAN PLATELET VOLUME 6.6 FL (7.4-10.4); MONOCYTES # (AUTO) 0.5 X10'3 (0-0.9); NEUTROPHILS % (AUTO) 50.3 % (42-75); PLATELET COUNT 352 X10'3 (140-440); RED BLOOD COUNT 3.54 X10'6 (4.70-6.10); RED CELL DISTRIBUTION WIDTH 12.8 % (11.5-14.5); WHITE BLOOD COUNT 5.9 X10'3 (4.5-11.0)
[2021-05-18] MEDS: docusate sod 100mg capsule PO SCH (07:42)
[2021-05-18] MEDS: pantoprazole 40mg Tablet.DR PO SCH (07:42)
[2021-05-18] MEDS: lactobacillus rhamnosus 10,000 MMU CELLS/CAPSULE PO SCH (07:43)
[2021-05-18] MEDS: heparin, porcine 5000 units/ml vial SQ SCH (07:45)
[2021-05-18] MEDS: nicotine 21mg patch - 24 hr TD SCH (07:45)
[2021-05-18] MEDS: CefTRIAXone/D5W-Rocephin 1gm 50 ML IV SCH (07:45)
[2021-05-18 07:46] LABS: ALANINE AMINOTRANSFERASE 10 U/L (12-78); ALBUMIN 2.6 G/DL (3.4-5.0); ALBUMIN/GLOBULIN RATIO 0.8 (1.1-1.5); ALKALINE PHOSPHATASE 67 IU/L (46-116); ANION GAP 7 (8-16); ASPARTATE AMINO TRANSFERASE 10 U/L (10-37); BILIRUBIN,TOTAL 0.2 MG/DL (0.1-1.0); BLOOD UREA NITROGEN 9 MG/DL (7-18); BUN/CREATININE RATIO 15.8 (5.4-32.0); CALCIUM 7.8 MG/DL (8.5-10.1); CHLORIDE 104 MMOL/L (99-107); CREATININE 0.57 MG/DL (0.60-1.10); GLUCOSE 90 MG/DL (70-104); SODIUM 144 MMOL/L (135-145); TOTAL CARBON DIOXIDE 33.5 MMOL/L (24-32); TOTAL PROTEIN 5.8 G/DL (6.4-8.2); eGFR > 90 ML/MIN
[2021-05-18] MEDS ORDERED: sertraline 50mg tablet PO SCH (08:00)
[2021-05-18 11:00] VITALS: BP 125/70
--- NOTE | 2021-05-18 14:45 | NUR ---
Patient stable for discharge per Dr Chery. DC'd PIV with canula intact, DC'd tele. Patient verbalized understanding of discharge instructions and the importance of follow up care. Escorted patient to lobby for transport home by his spouse.
== END 2021-05-18 14:22 | disposition home or self-care (01) | DRG 466 ==
LOC: ER 17:56 → ED HOLD 05-17 00:04 → UNDOADMIN 05-17 00:04 → ED HOLD 05-17 00:11 → PCU 3S 05-17 10:32
PROVIDERS: ADMIT Family Medicine; ATTEND Internal Medicine
DX: T83.098A Other mechanical complication of other urinary catheter, initial encounter (principal); C34.90 Malignant neoplasm of unspecified part of unspecified bronchus or lung; K80.10 Calculus of gallbladder with chronic cholecystitis without obstruction; N32.1 Vesicointestinal fistula; E86.0 Dehydration; D64.9 Anemia, unspecified; F32.9 Major depressive disorder, single episode, unspecified; K91.89 Other postprocedural complications and disorders of digestive system; N39.0 Urinary tract infection, site not specified; R82.4 Acetonuria; K59.00 Constipation, unspecified; Y84.6 Urinary catheterization as the cause of abnormal reaction of the patient, or of later complication, without mention of misadventure at the time of the procedure; G89.4 Chronic pain syndrome; I10 Essential (primary) hypertension; J44.9 Chronic obstructive pulmonary disease, unspecified; Z72.0 Tobacco use; Z87.440 Personal history of urinary (tract) infections; Z88.8 Allergy status to other drugs, medicaments and biological substances; Z79.899 Other long term (current) drug therapy; Y92.89 Other specified places as the place of occurrence of the external cause; Z71.6 Tobacco abuse counseling
CPT/HCPCS: 36415; 74176; 80053; 81001; 83690; 83735; 83880; 84100; 85025; 85610; 85730; 87077; 87081; 87088; 87186; 94760; 99285; G0378; J0696; J1644; J2270; J2405; J7030; Q0177; Q9963